=== PATIENT | male | born 1975 | race Caucasian/White ===

== ENCOUNTER 2019-07-12 13:31 | Emergency (ER) | payer BC ==
[2019-07-12 13:45] VITALS: BP 109/66
--- NOTE | 2019-07-12 14:25 | UC ---
Respiratory Complaint HPI - HPI Summary HPI Summary: 43 year old male with no PMH no medications presents with cold symptoms ~ 5 weeks ago, resolved other than cough, deep in chest. This Tuesday- increased sinus pain, drainage, cough- green productive. b/l ear fullness, minimal throat irritation. + chills, denies fever. with similar symptoms. - History of Current Complaint Chief Complaint: UCRespiratory Stated Complaint: CHEST CONGESTION Time Seen by Provider: 07/12/19 14:00 Hx Obtained From: Patient Severity Currently: Mild Pain Intensity: 1 Pain Scale Used: 0-10 Numeric Character: Cough: Productive - green sputum Associated Signs And Symptoms: Positive: Dyspnea, Chills, URI, Nasal Congestion , Sinus Discomfort. Negative: Calf Pain, Calf Swelling - Allergies/Home Medications Allergies/Adverse Reactions: Allergies Allergy/AdvReac Type Severity Reaction Status Date / Time No Known Allergies Allergy Verified 07/12/19 13:45 Home Medications: Home Medications guaiFENesin [Mucinex] 600 mg PO BID PRN 07/12/19 [History Confirmed 07/12/19] PMH/Surg Hx/FS Hx/Imm Hx Previously Healthy: Yes - no PMH - Surgical History Surgical History: None - Family History Known Family History: Positive: Non-Contributory - Social History Alcohol Use: Occasionally Substance Use Type: None Smoking Status (MU): Former Smoker When Did the Patient Quit Smoking/Using Tobacco: 5 yrs ago Review of Systems All Other Systems Reviewed And Are Negative: Yes Constitutional: Positive: Chills, Fatigue. Negative: Fever Skin: Negative: Rash ENT: Positive: Sore Throat, Ear Ache, Nasal Discharge, Sinus Congestion, Sinus Pain/Tenderness Respiratory: Positive: Cough. Negative: Shortness Of Breath Neurological: Positive: Headache. Negative: Weakness, Paresthesia Is Patient Immunocompromised?: No Physical Exam Triage Information Reviewed: Yes Appearance: Well-Appearing, No Pain Distress, Well-Nourished Vital Signs: Initial Vital Signs Temp 99.8 F 07/12/19 13:40 Pulse 88 07/12/19 13:40 Resp 16 07/12/19 13:40 BP 109/66 07/12/19 13:40 Pulse Ox 97 07/12/19 13:40 Vital Signs Reviewed: Yes Eyes: Positive: Conjunctiva Clear ENT: Positive: Pharynx normal, TMs normal - minimal erythema L TM surrounding. minimal fluid posterior TM, Sinus tenderness - minimal frontal, Uvula midline. Negative: Pharyngeal erythema, TM bulging, TM dull, TM red, Tonsillar swelling, Tonsillar exudate Neck: Positive: Supple, Nontender, No Lymphadenopathy. Negative: Nuchal Rigidity, Enlarged Nodes @ Respiratory: Positive: Chest non-tender, Lungs clear, Normal breath sounds, No respiratory distress, No accessory muscle use. Negative: Crackles, Rhonchi, Stridor, Wheezing Cardiovascular: Positive: RRR Neurological: Positive: Alert Respiratory Course/Dx - Course Course Of Treatment: SInusitis: - Antibiotics as directed - Increase fluid intake - Humidifer to decrease symptoms at bedtime - Tylenol/ Motrin as needed for pain, aches, fever. - Over the counter medications for symptoms - Return with increased pain, fever > 102, neck stiffness - Differential Dx/Diagnosis Differential Diagnosis/HQI/PQRI: Sinusitis Provider Diagnosis: Acute bacterial sinusitis Discharge ED - Sign-Out/Discharge Documenting (check all that apply): Patient Departure All imaging exams completed and their final reports reviewed: No Studies - Discharge Plan Condition: Good Disposition: HOME Prescriptions: Azithromyxin NABIL (NF) [Z-Nabil (Zithromax) 250 mg tabs #6] 2 tab PO .TODAY, THEN 1 DAILY #6 tab Patient Education Materials: Sinusitis (ED) Referrals: Brennon Luther MD [Primary Care Provider] - Additional Instructions: - Antibiotics as directed - Increase fluid intake - Humidifer to decrease symptoms at bedtime - Tylenol/ Motrin as needed for pain, aches, fever. - Over the counter medications for symptoms - Return with increased pain, fever > 102, neck stiffness - Billing Disposition and Condition Condition: GOOD Disposition: Home - Attestation Statements Provider Attestation: I was available for consult. This patient was seen by the ANDREY. The patient was not presented to, seen by, or examined by me. -Duran
== END 2019-07-12 14:28 | disposition home or self-care (01) ==
LOC: UCEAST 13:31
DX: J01.90 Acute sinusitis, unspecified (principal); B96.89 Other specified bacterial agents as the cause of diseases classified elsewhere; Z87.891 Personal history of nicotine dependence
CPT/HCPCS: 99202; G0463

== ENCOUNTER 2019-07-20 13:20 | Emergency (ER) | payer BC ==
[2019-07-20 13:43] VITALS: BP 139/85
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
== END 2019-07-20 14:44 | disposition home or self-care (01) ==
LOC: UCEAST 13:20
DX: F41.9 Anxiety disorder, unspecified (principal); R20.0 Anesthesia of skin; R06.02 Shortness of breath; R00.0 Tachycardia, unspecified; Z87.891 Personal history of nicotine dependence
CPT/HCPCS: 93005; 99212; G0463